=== PATIENT | female | born 1985 | race American Indian/Alaskan Native ===

== ENCOUNTER 2018-01-13 06:00 | Inpatient (IN) | payer OTHER ==
[2018-01-13] MEDS ORDERED: ELECTROLYTE-148 SOLN 500 ML IV ONE ×2 (06:30→07:00)
[2018-01-13 06:32] VITALS: BMI 30.9
[2018-01-13] MEDS ORDERED: CITRIC ACID/SODIUM CITRATE 30 ML UNIT-DOSE CUP PO ONE (06:40)
[2018-01-13] MEDS ORDERED: OXYTOCIN 20 UNITS in 0.9% NS 20 UNIT/1,000 ML INFUS.BAG IV ONE (07:54)
[2018-01-13] MEDS ORDERED: ELECTROLYTE-148 SOLN 1,000 ML IV SCH (08:00)
--- NOTE | 2018-01-13 08:05 | HP ---
Past Medical History - Admission Chief Complaint: Elective History of Present Illness: 32 yo @ 39 weeks gestation with previous , is pre op for repeat C- Section. She denies any labor pain. History Source: Patient Limitations to Obtaining History: No Limitations - Past Medical History ...: 4 ...Para: 3 ...Term: 2 ...: 1 ...LMP: 04/15/17 ... Weeks Gestation by Dates: 39 ...EDC by Dates: 01/20/18 ...EDC by Sono: 01/20/18 - Past Surgical History Past Surgical History: Yes: Hx Myomectomy: No Hx Transabdominal Cerclage: No - Smoking History Smoking history: Never smoked Have you smoked in the past 12 months: No Aproximately how many cigarettes per day: 0 - Alcohol/Substance Use Hx Alcohol Use: No History of Substance Use: reports: None - Social History Usual Living Arrangement: Yes: With Spouse History of Recent Travel: No Home Medications - Allergies Allergies/Adverse Reactions: Allergies Allergy/AdvReac Type Severity Reaction Status Date / Time No Known Allergies Allergy Verified 01/13/18 07:47 - Home Medications Home Medications: Ambulatory Orders NK [No Known Home Medication] 02/09/15 Family Disease History - Family Disease History Family History: Unremarkable Review of Systems - Review of Systems Constitutional: reports: No Symptoms Eyes: reports: No Symptoms HENT: reports: No Symptoms Neck: reports: No Symptoms Cardiovascular: reports: No Symptoms Respiratory: reports: No Symptoms Gastrointestinal: reports: No Symptoms Genitourinary: reports: No Symptoms Breasts: reports: No Symptoms Reported Musculoskeletal: reports: No Symptoms Integumentary: reports: No Symptoms Neurological: reports: No Symptoms Endocrine: reports: No Symptoms Hematology/Lymphatic: reports: No Symptoms Psychiatric: reports: No Symptoms Pain Intensity: 0 Physical Exam - Maternity Vital Signs: Vital Signs Temperature 98.5 F 01/13/18 06:45 Pulse Rate 74 01/13/18 06:45 Respiratory Rate 20 01/13/18 06:45 Blood Pressure 113/72 01/13/18 06:45 O2 Sat by Pulse Oximetry (%) Constitutional: Yes: Well Nourished Eyes: Yes: Conjunctiva Clear HENT: Yes: Atraumatic Neck: Yes: Supple Cardiovascular: Yes: Regular Rate and Rhythm Lungs: Clear to auscultation - Abdominal Exam/OB Number of Fetuses: Single Presentation: Vertex - Physical Exam Musculoskeletal: Yes: WNL Extremities: Yes: WNL ...Motor Strength: WNL Psychiatric: Yes: Alert, Oriented Problem List - Problems (1) Previous section complicating , antepartum condition or complication Code(s): O34.219 - MATERNAL CARE FOR UNSP TYPE SCAR FROM PREVIOUS DEL Assessment/Plan Elective Pre op for repeat Consent signed Anesthesia to see patient
[2018-01-13] MEDS ORDERED: morphine SULFATE/Preservative Free 0.5 MG/ML (1cc Syringe) ONE (08:35)
[2018-01-13] MEDS ORDERED: ceFAZolin SODIUM 1 GM VIAL ONE (08:36)
[2018-01-13] MEDS ORDERED: METHYLERGONOVINE MALEATE 0.2 MG/1 ML AMP IM PRN (09:38)
[2018-01-13] MEDS ORDERED: IBUPROFEN 800 MG/8 ML IJ IVPB PRN (09:38)
[2018-01-13] MEDS ORDERED: ONDANSETRON 4 MG/2 ML VIAL IVPUSH PRN (09:39)
--- NOTE | 2018-01-13 09:42 | OP ---
Operative Note - Note: Operative Date: 01/13/18 Pre-Operative Diagnosis: Elective Operation: Repeat Low Transverse Post-Operative Diagnosis: Same as Pre-op Surgeon: Nancy Currie Inspector Barrel: Antwan Lemos Anesthesia: Spinal Specimens Removed: Placenta Operative Report Dictated: Yes
[2018-01-13] MEDS ORDERED: OXYTOCIN 20 UNITS in 0.9% NS 20 UNIT/1,000 ML INFUS.BAG IV SCH (09:45)
--- NOTE | 2018-01-13 10:11 | SURG ---
Surgery Steel Box Toe Inserter Note Steel Box Toe Inserter: Antwan Lemos PA-C Date of Service: 01/13/18 Diagnosis: Elective Procedure: Cesarian Section I was present for the entirety of the operative procedure. For further detail, please refer to operative report.
[2018-01-13] MEDS: FERROUS SO4 325 MG TABLET (FP) PO SCH ×2 (10:16→21:15)
[2018-01-13] MEDS: PRENATAL VITAMINS W/ FOLIC ACID TABLET (FP) PO SCH (10:19)
[2018-01-13] MEDS ORDERED: IBUPROFEN 800 MG/8 ML IJ IVPB ONE (10:21)
[2018-01-13] MEDS: IBUPROFEN 800 MG/8 ML IJ IVPB PRN ×2 (10:29→21:14)
--- NOTE | 2018-01-13 20:38 | OP ---
DATE OF OPERATION: 01/13/2018 PREOPERATIVE DIAGNOSIS: Elective section and 39 weeks gestation. POSTOPERATIVE DIAGNOSIS: Elective section and 39 weeks gestation. PROCEDURE: Repeat low transverse section. SURGEON: Nancy Currie M.D. COLD WATER MACHINE OPERATOR: Juan Pablo Starr ANESTHESIA: Spinal. COMPLICATIONS: None. ESTIMATED BLOOD LOSS: 500 mL. PROCEDURE: Patient was taken to the operating room where spinal anesthesia was administered. Patient was then prepped and draped in proper sterile fashion. A Pfannenstiel incision was made and carried down to the underlying layer of fascia. Fascia was incised in the midline and extended laterally. The superior aspect of the fascial incision was then grasped with a Ana Maria clamp, elevated, and the rectus muscle dissected off bluntly. Attention was then turned to the inferior aspect of the fascial incision, which in a similar fashion was then grasped with Ana Maria clamp, elevated, and the rectus muscle dissected off bluntly. The rectus muscle was then in the midline, the peritoneum identified and entered sharply with the Metzenbaum scissors. The peritoneal incision was entered using the Metzenbaum, and this incision was extended superiorly and inferiorly with good visualization of the bladder. Then the vesicouterine peritoneum was then grasped with Ana Maria clamps, and then grasped with a pickup, and entered sharply with Metzenbaum scissors. This incision was extended laterally and a bladder flap created digitally. The bladder blade was inserted and the lower uterine segment was incised using a 10 blade. This incision was extended laterally and the head delivered atraumatically. Nose and mouth were suctioned, and the cord clamped and cut. The was handed to the waiting insurance office supervisor. The placenta was then removed manually. The uterus exteriorized and cleared of all clots and debris, the uterine incision repaired using 0 Biosyn in a running locked fashion. The second layer of the same suture was used as a means to provide excellent hemostasis. Then the pelvis was completely irrigated, the uterus was returned to the abdomen, the peritoneum was closed using 2-0 Biosyn. The fascia was reapproximated using 0 Vicryl in a running fashion. The skin was closed in a subcuticular fashion using 3-0 Vicryl. Patient tolerated procedure well. Patient was then taken to PACU in stable condition. Pathology, placenta. NANCY CURRIE M.D. [id number]
[2018-01-14] MEDS: IBUPROFEN 600 MG TABLET (FP) PO PRN ×3 (05:47→21:16)
[2018-01-14] MEDS: SIMETHICONE 80 MG TAB.CHEW (FP) PO PRN ×3 (05:47→21:16)
[2018-01-14] MEDS: oxyCODONE HCL 5 MG TABLET PO PRN (05:47)
--- NOTE | 2018-01-14 07:02 | PN ---
Post Progress Note - Subjective Subjective: 32 yo Para 4 status post repeat , seen and evaluated. Doing well. No complaints. Post Day: 1 Type of Delivery: Repeat C/S Vital Signs: Vital Signs Temperature 98.3 F 01/14/18 06:00 Pulse Rate 80 01/14/18 06:00 Respiratory Rate 18 01/14/18 06:00 Blood Pressure 100/53 01/14/18 06:00 O2 Sat by Pulse Oximetry (%) 98 01/13/18 10:36 Breast Exam: Yes: Soft Uterus: Yes: Fundus Firm Incision: Yes: Dressing dry and intact Abdomen/GI: Yes: Abdomen soft, Tolerating PO Lochia: Yes: Rubra Lochia, amount: Small Extremities: Yes: Calves non-tender Perineum: Yes: Intact Activity: Other (Lying in bed) Problem List - Problems (1) Previous section complicating , antepartum condition or complication Code(s): O34.219 - MATERNAL CARE FOR UNSP TYPE SCAR FROM PREVIOUS DEL (2) Status post repeat low transverse section Code(s): Z98.891 - HISTORY OF UTERINE SCAR FROM PREVIOUS SURGERY Assessment/Plan Status post repeat Stable Continue routine post op care
[2018-01-14 07:09] LABS: BASO % 0.3 % (0-2.0); EOS % 1.2 % (0-4.5); HEMATOCRIT 29.1 % (32.4-45.2); HEMOGLOBIN 9.1 GM/dL (10.7-15.3); LYMPH % 16.1 % (8-40); MCH 23.2 pg (25.7-33.7); MCHC 31.2 g/dl (32.0-36.0); MEAN CELL VOLUME 74.4 fl (80-96); MEAN PLT VOLUME 7.8 fl (7.5-11.1); NEUT % 76.4 % (42.8-82.8); PLATELET COUNT 196 K/MM3 (134-434); RBC 3.91 M/mm3 (3.60-5.2); RDW 16.2 % (11.6-15.6); WHITE BLOOD COUNT 11.4 K/mm3 (4.0-10.0)
--- NOTE | 2018-01-14 08:35 | PN ---
Progress Note (short form) - Note Progress Note: Anesthesia Post op/pain Pt seen and examined S:Alert and awake comfortable O: Vital Signs Temperature 98.3 F 01/14/18 06:00 Pulse Rate 80 01/14/18 06:00 Respiratory Rate 01/14/18 08:00 Blood Pressure 100/53 01/14/18 06:00 O2 Sat by Pulse Oximetry (%) 98 01/13/18 10:36 CBC, BMP 01/14/18 06:35 A/P Current Active Problems Previous section complicating , antepartum condition or complication (Acute) Status post repeat low transverse section (Acute) s/p c section Doing well post op Continue current care Wilberto Lennon MD
[2018-01-14] MEDS ORDERED: BISACODYL 10 MG SUPP.RECT RC PRN (09:38)
[2018-01-14] MEDS: FERROUS SO4 325 MG TABLET (FP) PO SCH ×2 (10:19→21:16)
[2018-01-14] MEDS: PRENATAL VITAMINS W/ FOLIC ACID TABLET (FP) PO SCH (10:19)
[2018-01-14] MEDS: ACETAMINOPHEN 325 MG TABLET (FP) PO PRN ×2 (17:09→21:18)
[2018-01-15] MEDS: IBUPROFEN 600 MG TABLET (FP) PO PRN ×2 (08:25→20:00)
[2018-01-15] MEDS: ACETAMINOPHEN 325 MG TABLET (FP) PO PRN ×2 (08:27→20:01)
[2018-01-15] MEDS: SIMETHICONE 80 MG TAB.CHEW (FP) PO PRN ×2 (08:30→20:00)
[2018-01-15] MEDS: PRENATAL VITAMINS W/ FOLIC ACID TABLET (FP) PO SCH (09:55)
[2018-01-15] MEDS: FERROUS SO4 325 MG TABLET (FP) PO SCH ×2 (09:55→22:20)
[2018-01-15] MEDS: oxyCODONE HCL 5 MG TABLET PO PRN (20:00)
--- NOTE | 2018-01-15 20:24 | PN ---
Progress Note, Physician Chief Complaint: Late entry for 1210pm Pt seen/evaluated and doing well. Pain controlled, tolerating diet, ambulating , voiding, passing flatus. NO complaints. - Current Medication List Current Medications: Active Medications Acetaminophen (Tylenol -) 650 mg PO Q4H PRN PRN Reason: FEVER Last Admin: 01/15/18 20:01 Dose: 650 mg Bisacodyl (Dulcolax Suppository -) 10 mg RC PRN PRN PRN Reason: CONSTIPATION Ferrous Sulfate (Feosol -) 325 mg PO BID [facility] Last Admin: 01/15/18 09:55 Dose: 325 mg Ibuprofen (Motrin -) 600 mg PO Q4H PRN PRN Reason: PAIN LEVEL 1 - 3 Last Admin: 01/15/18 20:00 Dose: 600 mg Methylergonovine Maleate (Methergine Injection -) 0.2 mg IM Q4H PRN PRN Reason: Excessive Bleeding (L&D) Oxycodone HCl (Roxicodone -) 5 mg PO Q4H PRN PRN Reason: PAIN LEVEL 4 - 6 Last Admin: 01/15/18 20:00 Dose: 5 mg Multivit/Folic Acid/Iron ( Vitamins (Sjr) -) 1 tab PO DAILY ESTEBAN Last Admin: 01/15/18 09:55 Dose: 1 tab Simethicone (Mylicon -) 80 mg PO Q4H PRN PRN Reason: GAS Last Admin: 01/15/18 20:00 Dose: 80 mg - Objective Vital Signs: Vital Signs Temperature 97.8 F 01/15/18 13:01 Pulse Rate 72 01/15/18 13:01 Respiratory Rate 14 01/15/18 13:01 Blood Pressure 98/54 01/15/18 13:01 O2 Sat by Pulse Oximetry (%) 98 01/13/18 10:36 Constitutional: Yes: Well Nourished, No Distress, Calm Eyes: Yes: Conjunctiva Clear, EOM Intact Neck: Yes: WNL Cardiovascular: Yes: Regular Rate and Rhythm Respiratory: Yes: Regular, CTA Bilaterally Gastrointestinal: Yes: WNL Extremities: Yes: WNL Edema: No Wound/Incision: Yes: Dressing Dry and Intact Neurological: Yes: Alert, Oriented Psychiatric: Yes: Alert, Oriented Labs: CBC, BMP 01/14/18 06:35 Problem List - Problems (1) delivery delivered Code(s): O82 - ENCOUNTER FOR DELIVERY WITHOUT INDICATION Assessment/Plan 32 y/o POD#2 s/p delivery AFVSS Hgb 9.1 - for PO Iron regular diet PO pain meds routine care
[2018-01-15] MEDS ORDERED: BISACODYL 5 MG TABLET.DR (FP) PO ONE (23:15)
--- NOTE | 2018-01-16 07:49 | DS ---
Physical Examination Vital Signs: Vital Signs Temperature 97.7 F 01/15/18 22:00 Pulse Rate 83 01/15/18 22:00 Respiratory Rate 18 01/15/18 22:00 Blood Pressure 113/69 01/15/18 22:00 O2 Sat by Pulse Oximetry (%) 98 01/13/18 10:36 Constitutional: Yes: Well Nourished, No Distress, Calm Eyes: Yes: WNL HENT: Yes: WNL Neck: Yes: WNL Wound/Incision: Yes: Clean/Dry, Well Approximated Neurological: Yes: Alert, Oriented Psychiatric: Yes: Alert, Oriented Discharge Summary Reason For Visit: REPEAT Current Active Problems delivery delivered (Acute) Previous section complicating , antepartum condition or complication (Acute) Status post repeat low transverse section (Acute) Hospital Course: Pt admitted for scheduled repeat delivery on 01/13/18. Pt underwent an uncomplicated procedure on that date. She then underwent an uncomplicated post recovery and was discharged home on post op day 3. Condition: Good - Instructions Diet, Activity, Other Instructions: Contact your doctors office to make a follow up appointment. If you have any heavy vaginal bleeding, fever > 101.0, pain that isn't controlled with medication - please call your doctor. No sex or anything in the vagina for 6 weeks. No driving until cleared by your doctor. Referrals: Nancy Currie MD [Staff Physician] - Disposition: HOME - Home Medications Comprehensive Discharge Medication List: Ambulatory Orders NK [No Known Home Medication] 02/09/15
[2018-01-16 08:14] VITALS: BP 115/59; PULSE 68; TEMP 97.8
[2018-01-16 09:34] LABS: BASO % 0.2 % (0-2.0); EOS % 2.7 % (0-4.5); HEMATOCRIT 31.9 % (32.4-45.2); HEMOGLOBIN 10.4 GM/dL (10.7-15.3); LYMPH % 15.8 % (8-40); MCH 24.1 pg (25.7-33.7); MCHC 32.5 g/dl (32.0-36.0); MEAN CELL VOLUME 74.1 fl (80-96); MEAN PLT VOLUME 7.9 fl (7.5-11.1); MONO % 3.8 % (3.8-10.2); NEUT % 77.5 % (42.8-82.8); PLATELET COUNT 292 K/MM3 (134-434); RBC 4.31 M/mm3 (3.60-5.2); RDW 16.7 % (11.6-15.6); WHITE BLOOD COUNT 10.8 K/mm3 (4.0-10.0)
[2018-01-16] MEDS: PRENATAL VITAMINS W/ FOLIC ACID TABLET (FP) PO SCH (09:35)
[2018-01-16] MEDS: FERROUS SO4 325 MG TABLET (FP) PO SCH (09:35)
[2018-01-16] MEDS: IBUPROFEN 600 MG TABLET (FP) PO PRN (12:34)
[2018-01-16] MEDS: ACETAMINOPHEN 325 MG TABLET (FP) PO PRN (12:35)
[2018-01-16] MEDS: SIMETHICONE 80 MG TAB.CHEW (FP) PO PRN (12:35)
--- NOTE | 2018-01-17 16:31 | PATH ---
Surgical Pathology Report Patient Name: KAROLINA CESAR [facility]. Rec. #: [id number] /Age/Gender: 1985 (Age: 32) / F Account: [id number] Location: [facility] OBS/COMMERCIAL ARTIST Taken: 01/13/2018 Received: 01/13/2018 Reported: 01/17/2018 Physicians: Nancy Currie M.D. Specimen(s) Received PLACENTA Clinical History 2012, 2013, 2014 Term x2, severe IUGR at 28 weeks Current complicated with asymmetric IUGR Final Diagnosis PLACENTA: THIRD TRIMESTER PLACENTA. TRIVASCULAR CORD. MEMBRANES WITH NO DIAGNOSTIC ABNORMALITIES. Electronically Signed Devon Navarrete M.D. Gross Description The specimen is received fresh labeled placenta and is a 430 gram, 14.5 x 13.0 x 2.5 cm. placenta with attached membranes and umbilical cord. The attached membranes are araujo, translucent with focal opacities and insert marginally. The umbilical cord measures 30 cm. in length and averages 1.0 cm. in diameter. The cord inserts eccentrically, 4 cm. to the nearest margin. No true knots or strictures are identified. Cut surface of the umbilical cord reveals 3 vessels. The surface is clemens-blue with minimal fibrin deposition and appropriate caliber vessels. The maternal surface is red-brown with focal defects. Sectioning reveals red-brown, spongy parenchyma. No lesions are identified. Manager Group sections are submitted in three cassettes as follows: 1- membrane rolls and umbilical cord; 2-3- full thickness sections of placenta. 01/16/2018 saudi01/16/2018
== END 2018-01-16 13:00 | disposition home or self-care (01) | DRG 540 ==
LOC: JLDR 06:00 → J3W 11:17
PROVIDERS: ADMIT Obstetrics & Gynecology; ATTEND Obstetrics & Gynecology
PROC: 10D00Z1 Extraction of Products of Conception, Low, Open Approach (ICD-10-PCS; principal; 2018-01-13)
DX: O34.219 Maternal care for unspecified type scar from previous cesarean delivery (principal); Z3A.39 39 weeks gestation of pregnancy; Z37.0 Single live birth
CPT/HCPCS: 36415; 85025; 88307-TC